=== PATIENT | male | born 1975 | race Caucasian/White ===

== ENCOUNTER → 2016-11-15 | Outpatient (CLI) | payer OTHER ==
[~2016-11-15] MED LIST: ASPI81TA28 PO; HYDR25TA4 PO; METO50TA16 PO
--- NOTE | 2016-11-15 13:33 | DIAGNOSTIC IMAGING REPORT ---
MRI OF THE LEFT WRIST WITHOUT IV CONTRAST CLINICAL HISTORY: Left wrist pain. Injury and swelling. COMPARISON STUDY: No priors. TECHNIQUE: MRI of the left wrist is performed using various T1 and T2-weighted sequences in the axial, sagittal, and coronal planes. IV contrast was not administered for this examination. Note that interpretation is suboptimal without plain film correlate. FINDINGS: There is no MRI evidence of fracture or osteonecrosis in the wrist. Cystic degenerative change with mild marrow edema is seen in the capitate. There is fluid within the distal radioulnar joint. There is microperforation at the radial attachment of the triangular fibrocartilage. There is also tearing of the ulnomeniscal homologue and likely the ulnar collateral ligament. There is tendinopathy with thickening and partial-thickness tearing seen involving the flexor carpi ulnaris tendon. Mild overlying soft tissue edema is observed. The remainder of the visualized flexor and extensor tendons appear intact. IMPRESSION: 1. [place] fibrocartilage tears as above with fluid in the distal radioulnar joint. 2. There is also likely tearing of the on the collateral ligament. 3. Tendinopathy with partial thickness tearing is seen involving the flexor carpi ulnaris tendon. 4. Cystic degenerative change with mild marrow edema is identified in the capitate. No fracture is seen. Electronically signed by: Bigg Soriano M.D. 11/15/2016 1:31 PM Dictated Date/Time: 11/15/2016 1:10 PM
== END | disposition home or self-care (01) ==
LOC: C.MRIBC 12:24
PROVIDERS: ATTEND Nurse Practitioner Family
DX: M25.532 Pain in left wrist (principal); M79.89 Other specified soft tissue disorders; X50.9XXA Other and unspecified overexertion or strenuous movements or postures, initial encounter; Y99.0 Civilian activity done for income or pay; M25.832 Other specified joint disorders, left wrist; M77.8 Other enthesopathies, not elsewhere classified

== ENCOUNTER → 2016-11-22 | Outpatient (CLI) | payer OTHER ==
--- NOTE | 2016-11-22 09:33 | DIAGNOSTIC IMAGING REPORT ---
LEFT WRIST MIN 3 VIEWS ROUTINE CLINICAL HISTORY: LEFT WRIST PAIN pain COMPARISON: None. DISCUSSION: Minimal degenerative change There is no evidence for soft tissue swelling. No acute bony abnormality IMPRESSION: Negative study. Minimal degenerative change Electronically signed by: Sher Jean Baptiste M.D. 11/22/2016 9:32 AM Dictated Date/Time: 11/22/2016 9:29 AM
== END | disposition home or self-care (01) ==
LOC: C.RDSM 09:20
PROVIDERS: ATTEND Family Medicine
DX: M25.532 Pain in left wrist (principal)